=== PATIENT | female | born 1985 | race Caucasian/White ===

== ENCOUNTER 2018-02-20 23:57 | Emergency (ER) | payer OTHER ==
[~2018-02-20] VITALS: Ht 167.6 cm; Wt 72.0 kg
[2018-02-21] MEDS ORDERED: MOBI15TA PO (00:22)
[2018-02-21] MEDS ORDERED: ACYC200C66 PO (00:22)
[2018-02-21 00:32] VITALS: BP 160/87; PULSE 80; RESP 20; TEMP 98.2; O2SAT 100
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
[2018-02-21 05:09] VITALS: BP 119/75
== END 2018-02-21 05:09 | disposition home or self-care (01) ==
LOC: NEPD 23:57
DX: F10.929 Alcohol use, unspecified with intoxication, unspecified (principal); Y90.7 Blood alcohol level of 200-239 mg/100 ml; I10 Essential (primary) hypertension; M19.90 Unspecified osteoarthritis, unspecified site; Z79.899 Other long term (current) drug therapy
CPT/HCPCS: 80307; 99283